=== PATIENT | female | born 1985 | race Caucasian/White ===

== ENCOUNTER 2020-06-17 09:21 | Outpatient (CLI) | payer BC | END 2020-06-17 09:22 | disposition home or self-care (01) | LOC: CSHMRI 09:21 | PROVIDERS: ATTEND Nurse Practitioner Acute Care | DX: G43.009 Migraine without aura, not intractable, without status migrainosus (principal) | CPT/HCPCS: 70553 ==

== ENCOUNTER 2021-07-29 13:07 | Outpatient (CLI) | payer BC ==
[~2021-07-29 13:07] MED LIST: Gadobenate Dimeglumine 529 MG/1 ML (20ML VIAL) ONE
== END 2021-07-29 13:08 | disposition home or self-care (01) ==
LOC: CSHMRI 13:07
PROVIDERS: ATTEND Psychiatry & Neurology Neurology
DX: G43.909 Migraine, unspecified, not intractable, without status migrainosus (principal); E23.7 Disorder of pituitary gland, unspecified
CPT/HCPCS: 70553; A9577